=== PATIENT | female | born 1985 | race Two or more races ===

== ENCOUNTER 2017-12-25 19:17 | Inpatient (IN) | payer OTHER ==
[~2017-12-25] VITALS: Ht 157.5 cm; Wt 54.0 kg
== END 2017-12-28 16:00 | disposition home or self-care (01) | DRG 349 ==
LOC: ER 19:17 → SURG 12-26 13:16 → SURH 12-26 13:16 → SURG 12-26 15:42
PROC: 06BY0ZC Excision of Hemorrhoidal Plexus, Open Approach (ICD-10-PCS; principal; 2017-12-26)
PROC: 06LY0CC Occlusion of Hemorrhoidal Plexus with Extraluminal Device, Open Approach (ICD-10-PCS; 2017-12-26)
DX: K64.8 Other hemorrhoids (principal); K64.4 Residual hemorrhoidal skin tags; K64.3 Fourth degree hemorrhoids

== ENCOUNTER 2019-05-30 08:42 | Emergency (ER) | payer OTHER ==
[~2019-05-30] VITALS: Ht 160 cm; Wt 76.2 kg
== END 2019-05-30 13:44 | disposition home or self-care (01) ==
LOC: ER 08:42
DX: R50.9 Fever, unspecified (principal)

== ENCOUNTER 2021-02-26 09:00 | Emergency (ER) | payer OTHER ==
[~2021-02-26] VITALS: Ht 160 cm; Wt 90.7 kg
[2021-02-26] MEDS ORDERED: DICLOFENAC POTA50 MG PO (10:43)
[2021-02-26] MEDS ORDERED: ORPHENADRINE C100 MG PO (10:43)
== END 2021-02-26 10:51 ==
LOC: ER 09:00
DX: S20.212A Contusion of left front wall of thorax, initial encounter (principal); W17.89XA Other fall from one level to another, initial encounter; Y93.89 Activity, other specified; Y92.018 Other place in single-family (private) house as the place of occurrence of the external cause; Y99.8 Other external cause status

== ENCOUNTER → 2022-07-20 | Emergency (ER) | payer OTHER ==
[~2022-07-20] VITALS: Ht 157.5 cm; Wt 85.7 kg
[~2022-07-20] MED LIST: BUTALB-ASPIRIN1 EACH PO; DICLOFENAC POTA50 MG PO; ORPHENADRINE C100 MG PO
== END | disposition home or self-care (01) ==
LOC: ER 12:18
DX: G44.001 Cluster headache syndrome, unspecified, intractable (principal)

== ENCOUNTER 2022-10-22 19:11 | Emergency (ER) | payer OTHER ==
[~2022-10-22] VITALS: Ht 157.5 cm; Wt 81.6 kg
[2022-10-22] MEDS ORDERED: PEPCID AC20 MG PO (22:14)
[2022-10-22] MEDS ORDERED: ZOFRAN8 MG PO (22:14)
== END 2022-10-22 22:21 | disposition home or self-care (01) ==
LOC: ER 19:11
DX: B34.9 Viral infection, unspecified (principal)

== ENCOUNTER 2023-11-01 15:58 | Emergency (ER) | payer OTHER ==
[~2023-11-01] VITALS: Ht 154.9 cm; Wt 80.7 kg
[~2023-11-01 15:58] MED LIST changes: +PEPCID AC20 MG PO; +ZOFRAN8 MG PO
[2023-11-01] MEDS ORDERED: GUAIFENESIN/DEXTROMETHORPHAN 10ML BLIST.PACK PO ONE (19:30)
[2023-11-01 19:39] LABS: HEMOGLOBIN 13.8 g/dL (12.0-15.00); MEAN CELL VOLUME 91.4 fL (80.00-100.00); MEAN CORPUSCULAR HEMOGLOBIN 32.3 pg (27.00-32.0); MEAN CORPUSCULAR HGB CONC 35.4 g/dl (32.0-36.0); PLATELET COUNT 289 K/uL (150-450); RED BLOOD COUNT 4.27 M/uL (4.00-6.00); RED CELL DISTRIBUTION WIDTH 12.8 % (11.5-14.5)
[2023-11-01] MEDS ORDERED: AYR SALINE50 ML NASAL (20:50)
[2023-11-01] MEDS ORDERED: ZITHROMAX500 MG PO (20:50)
[2023-11-01] MEDS ORDERED: QC TUSSIN DM L118 ML PO (20:50)
[2023-11-01] MEDS ORDERED: ZYRTEC10 MG PO (20:53)
== END 2023-11-01 21:21 | disposition home or self-care (01) ==
LOC: ER 15:59
PROVIDERS: Nurse Practitioner Family
DX: J00 Acute nasopharyngitis [common cold] (principal); Z20.822 Contact with and (suspected) exposure to COVID-19

== ENCOUNTER → 2024-02-12 | Emergency (ER) | payer OTHER ==
[~2024-02-12] VITALS: Ht 157.5 cm; Wt 76.2 kg
[~2024-02-12] MED LIST changes: +AYR SALINE50 ML NASAL; +QC TUSSIN DM L118 ML PO; +ZITHROMAX500 MG PO; +ZYRTEC10 MG PO
== END | disposition left against medical advice (07) ==
LOC: ER 21:15
DX: Z53.21 Procedure and treatment not carried out due to patient leaving prior to being seen by health care provider (principal)